=== PATIENT | female | born 1970 | race Caucasian/White ===

== ENCOUNTER → 2016-10-18 | Outpatient (CLI) | payer MEDICARE, OTHER ==
[~2016-10-18] MED LIST: ABILIFY5 MG PO; DESYREL100 MG; DESYREL50 M1 PO; DESYREL50 MG PO; DIAZEPAM PO; FAMOTIDINE PO; FLORINEF0.1 M1 PO; HALOPERIDOL2 MG PO; HYDROCODON-ACE1 EAC7 PO; HYDROCODON-ACE1 EACH PO; HYDROXYZINE HCL50 MG PO; IBUPROFEN800 MG PO; K-DUR20 ME1 PO; LITHIUM CARBON300 M1 PO; LITHIUM CARBON300 M2 PO; LITHIUM CARBON600 MG PO; LITHIUM PO; MAGNESIUM OXID250 M1 PO; PHENERGAN25 M1 PO; PRO-AMATINE5 MG PO; PROZAC PO; PROZAC40 MG; PROZAC40 MG PO; SARAFEM20 MG PO; SEROQUEL XR50 MG PO; SEROQUEL50 MG; SIMVASTATIN5 MG PO; SODIUM BICARBO650 MG PO; SODIUM CHLORIDE1 GM PO; TRAZODONE HCL100 MG PO; VESICARE PO; VISTARIL PO; VISTARIL50 MG PO
[2016-10-18 11:41] LABS: ALBUMIN SERUM 3.8 g/dL (3.5-5.0); BILIRUBIN,TOTAL 0.5 mg/dL (0.2-2.0); BUN/CREATININE RATIO 18.57; CALCIUM SERUM 9.7 mg/dL (8.4-10.2); CREATININE SERUM 0.7 mg/dL (0.6-1.4); GLOM FILT RATE Estimated 102.5 mL/min (>60); POTASSIUM 3.9 mmol/L (3.5-5.1)
[2016-10-18 12:19] LABS: THYROID STIMULATING HORMONE 1.95 uIU/ml (0.34-5.60)
[2016-10-18 15:01] LABS: FREE THYROXIN (T4) 0.87 ng/dL (0.58-1.64)
== END | disposition home or self-care (01) ==
LOC: SLAB 10:53
PROVIDERS: Specialist
DX: F31.30 Bipolar disorder, current episode depressed, mild or moderate severity, unspecified (principal)
CPT/HCPCS: 80053; 80178; 84439; 84443

== ENCOUNTER → 2017-02-18 | Outpatient (CLI) | payer MEDICARE, OTHER ==
[2017-02-18 15:11] LABS: THYROID STIMULATING HORMONE 1.5 uIU/ml (0.34-5.60)
[2017-02-18 15:14] LABS: ALBUMIN SERUM 3.7 g/dL (3.5-5.0); BILIRUBIN,TOTAL 0.7 mg/dL (0.2-2.0); BUN/CREATININE RATIO 21.42; CALCIUM SERUM 9.5 mg/dL (8.4-10.2); CREATININE SERUM 0.7 mg/dL (0.6-1.4); GLOM FILT RATE Estimated 102.5 mL/min (>60); PROTEIN TOTAL SERUM 6.4 g/dL (6.0-8.3)
[2017-02-18 15:18] LABS: FREE THYROXIN (T4) 1.3 ng/dL (0.58-1.64)
== END | disposition home or self-care (01) ==
LOC: CLAB 13:59
PROVIDERS: Specialist
DX: F31.30 Bipolar disorder, current episode depressed, mild or moderate severity, unspecified (principal)
CPT/HCPCS: 36415; 80053; 80061; 80178; 84439; 84443